=== PATIENT | female | born 1980 | race Caucasian/White ===

== ENCOUNTER 2022-08-16 22:40 | Emergency (ER) | payer SELFPAY ==
[~2022-08-16] VITALS: Ht 162.6 cm; Wt 108.9 kg
[2022-08-16] MEDS ORDERED: CEFDINIR300 MG PO (23:27)
[2022-08-16] MEDS ORDERED: LORATADINE10 MG PO (23:27)
[2022-08-16] MEDS ORDERED: FLONASE ALLERG9.9 ML (23:27)
[2022-08-16] MEDS ORDERED: MAXITROL EYE O3.5 GM OU (23:27)
== END 2022-08-17 | disposition home or self-care (01) ==
LOC: FSED 23:06
DX: J32.9 Chronic sinusitis, unspecified (principal); J06.9 Acute upper respiratory infection, unspecified; H10.9 Unspecified conjunctivitis; I10 Essential (primary) hypertension
CPT/HCPCS: 83518; 87400; 99283